=== PATIENT | male | born 1995 ===

== ENCOUNTER 2019-07-27 11:15 | Emergency (ER) | payer OTHER ==
[~2019-07-27] VITALS: Ht 190.5 cm; Wt 63.5 kg
== END 2019-07-27 12:33 | disposition home or self-care (01) ==
LOC: ER 11:15
DX: S27.0XXA Traumatic pneumothorax, initial encounter (principal); S21.111A Laceration without foreign body of right front wall of thorax without penetration into thoracic cavity, initial encounter; X99.1XXA Assault by knife, initial encounter
CPT/HCPCS: 71046; 99282-25